=== PATIENT | female | born 1980 | race Caucasian/White ===

== ENCOUNTER → 2020-12-23 13:57 | Outpatient (CLI) | payer OTHER, SELFPAY ==
--- NOTE | 2020-12-23 14:00 | DI.MRI.S_ITS ---
PROCEDURE: MR KNEE LT WO CON INDICATIONS: Pain in left knee TECHNIQUE: Noncontrast sagittal PD fast spin echo and T2 fast spin echo with fat saturation, sagittal 3-D FLASH with fat saturation; coronal T1 spin echo and PD fast spin echo with fat saturation, and axial PD fast spin echo with fat saturation through the knee. COMPARISON: None. FINDINGS: Image quality: Excellent. Menisci: Linear vertically oriented high T2 signal intensity traverses the medial meniscal body and posterior horn, demonstrating inferior articular surface extension, indicating radial tearing. Lateral meniscus is intact. Cruciate ligaments: The anterior and posterior cruciate ligaments appear intact. Medial structures: The medial collateral ligament appears intact. Visualized portions of the pes anserinus tendons appear normal. No abnormal bursal fluid. There is a 30 mm diameter ganglion cyst at the posterior aspect of the medial femoral condyle. Lateral structures: The lateral collateral ligament, long and short heads of the biceps femoris tendon appear intact. The popliteus tendon appears normal. Iliotibial band appears normal. Anterior structures: The quadriceps and patellar tendons appear intact. Mild T2 signal elevation within the quadriceps and patellar tendon at the patellar insertion sites, indicating tendinopathy. Patellar alignment is normal. No femoral trochlear dysplasia or ventral trochlear prominence. No edema in the infrapatellar fat pad. Bones and cartilage: No bone marrow contusions or fractures. Intramedullary eric within the distal femur. Mild ill-defined T2 signal elevation within the anterior weight-bearing aspects of the medial tibial plateau and within the posterior weight-bearing aspect of the medial femoral condyle, consistent with degenerative marrow edema. Moderate articular cartilage loss diffusely overlies the weight-bearing aspects of the medial femoral condyle and medial tibial plateau. Mild articular cartilage loss overlies the weight-bearing aspects of the lateral femoral condyle and lateral tibial plateau. Joint space: There is physiologic knee joint fluid. No Diaz's cyst. Normal appearing synovial plicae are incidentally noted. IMPRESSION: 1. Medial meniscal tearing. 2. Ganglion cyst adjacent to the medial femoral condyle posteriorly. 3. Medial and lateral compartment articular cartilage loss. 4. Mild quadriceps and patellar tendinopathy. Dictated by: Rebeca Madsen M.D. on 12/23/2020 at 15:27 Approved by: Rebeca Madsen M.D. on 12/23/2020 at 15:30
== END ==
PROVIDERS: PCP Physician Assistant Medical; Referring Provider Orthopaedic Surgery; Visit Provider Orthopaedic Surgery
DX: M25.562 Pain in left knee (principal); S83.242A Other tear of medial meniscus, current injury, left knee, initial encounter; M67.462 Ganglion, left knee
CPT/HCPCS: 73721